=== PATIENT | female | born 1980 | race Caucasian/White ===

== ENCOUNTER 2016-09-09 20:04 | Emergency (ER) | payer OTHER ==
[2016-09-09 20:15] VITALS: BP 114/68; PULSE 86; RESP 14; TEMP 98.1; O2SAT 98
--- NOTE | 2016-09-09 20:32 | UCPHY ---
H & P Time Seen by Provider: 09/09/16 20:21 Patient Type: New HPI/ROS: This patient sustained a cat bite to the right 2nd finger and scratches to the dorsum of her hand from a feral cat that was in her barn. The cat is 12-week- old and 3 of 8 siblings were captured at 9 weeks and checked by the vet negative for rabies or other diseases. However this cat has not been tested yet. She captured the cat put in a crate. She clean the bite any abrasions with warm soapy water. She reports mild pain from injuries. The cat was not behaving abnormally she reports that got scared because she coronary at and grabbed it. ROS: Neuro-no numbness or tingling, no other injuries, 5 point ROSrwise negative. Smoking Status: Never smoked Physical Exam: Physical Exam Vital signs are normal. General: No acute distress HEENT: Atraumatic. Eyes: Pupils equal and react to light. Extraocular motions are intact. Lungs: No respiratory distress. Cardiac: Brisk capillary refill is intact throughout. Pulses are 2+ and symmetric in the affected extremity. Skin: No rash or pallor. The patient has superficial cat bite to the right 2nd finger PIP region dorsally with no wounds that appear to be full-thickness into the joint. These appear to be superficial. She also has superficial scratches from claws on her forearms. Neuro: Alert and oriented x3 with no sensorimotor deficits. Constitutional: Initial Vital Signs Temperature (C) 36.7 C 09/09/16 20:12 Heart Rate 86 09/09/16 20:12 Respiratory Rate 14 09/09/16 20:12 Blood Pressure 114/68 09/09/16 20:12 O2 Sat (%) 98 09/09/16 20:12 O2 Delivery Mode Room Air Allergies/Adverse Reactions: No Known Allergies Allergy (Unverified 09/09/16 20:12) Home Medications: Medication Instructions Recorded Amox Tr/K Clav (Augmentin) 500 mg PO TID #21 tab 09/09/16 [Augmentin 500/125 MG TAB (*)] MDM/Departure - MDM Medications Given: Discontinued Medications Amoxicillin/Clavulanate Potassium (Augmentin 875mg) 875 mg PO EDNOW ONE PRN Reason: Protocol Stop: 09/09/16 20:45 Last Admin: 09/09/16 20:55 Dose: 875 mg ED Course/Re-evaluation: The wounds are clean by our tech with chlorhexidine. I counseled her about the need to call animal control and have the cat observed for 10 days for abnormal behavior so we know if this patient required rabies treatment. She explains the burn is in the opposite direction of her home and is unwilling to involve and will control tonight. She explains that she will contact them in the morning and follow up with this plan. She understands the risk of missing potential rabies if the cat is not observed by trained professionals. Patient is treated with 1st dose of Augmentin prophylactically. I counseled regarding cat bite to the hand. - Depart Disposition: Home, Routine, Self-Care Clinical Impression: Cat bite involving extremity Condition: Good Instructions: Animal Bite (ED) Additional Instructions: Dx: cat bite Plan: We have recommended involving animal control tonight. You declined this. Call them tomorrow so they can observe the cat for 10 days to rule out rabid behavior. You do not need rabies prophylaxis unless the cat develops rabies symptoms while being monitored by animal Control. Augmentin antibiotic Clean wounds daily with warm soapy water Return for redness, discharge or other concerns. Prescriptions: Amox Tr/K Clav (Augmentin) [Augmentin 500/125 MG TAB (*)] 500 mg PO TID #21 tab Referrals: NONE *PRIMARY CARE P,. [Primary Care Provider] - As per Instructions - PQRS PQRS Measurement: NA
[2016-09-09] MEDS ORDERED: AMOXICILLIN/CLAVULANATE POT 875/125 MG TAB PO ONE ×2 (20:42→20:44)
== END 2016-09-09 20:59 | disposition home or self-care (01) ==
LOC: CED 20:04
DX: S60.571A Other superficial bite of hand of right hand, initial encounter (principal); W55.01XA Bitten by cat, initial encounter; Y92.71 Barn as the place of occurrence of the external cause; Y93.K9 Activity, other involving animal care
CPT/HCPCS: G0463-PO